=== PATIENT | female | born 1995 | race Native Hawaiian/Other Pacific Islander ===

== ENCOUNTER 2017-06-13 19:14 | Emergency (ER) | payer BC, OTHER ==
[~2017-06-13] VITALS: Ht 162.6 cm; Wt 70.3 kg
[2017-06-13 20:30] LABS: PLATELET COUNT 198 K/uL (152-353)
== END 2017-06-13 20:58 | disposition home or self-care (01) ==
LOC: ED 19:14
DX: R59.1 Generalized enlarged lymph nodes (principal); H70.92 Unspecified mastoiditis, left ear; Z33.1 Pregnant state, incidental
CPT/HCPCS: 36415; 85027; 99282

== ENCOUNTER 2017-06-15 16:17 | Emergency (ER) | payer BC, OTHER ==
[~2017-06-15] VITALS: Ht 162.6 cm; Wt 68.5 kg
[2017-06-15] MEDS ORDERED: CYCL10TA35 PO (16:33)
[2017-06-15] MEDS ORDERED: PRENATAL1 T10 PO (16:33)
[2017-06-15] MEDS ORDERED: CEPH500C20 PO ×2 (16:34)
== END 2017-06-15 17:33 | disposition home or self-care (01) ==
LOC: ED 16:17
DX: H92.02 Otalgia, left ear (principal)
CPT/HCPCS: 96372; 99282; J0696